=== PATIENT | male | born 1975 | race Caucasian/White ===

== ENCOUNTER 2020-02-25 13:01 | Emergency (ER) | payer MEDICAID, OTHER ==
[2020-02-25] MEDS ORDERED: Acetaminophen/HYDROcodone 325-5 MG Tab PO ONE (13:25)
--- NOTE | 2020-02-25 13:49 | EDM.PDOC ---
ED HPI GENERAL MEDICAL PROBLEM - General Chief Complaint: Lower Extremity Injury/Pain Stated Complaint: RT KNEE INJURY Time Seen by Provider: 02/25/20 13:08 Source of Information: Reports: Patient, RN Notes Reviewed History Limitations: Reports: No Limitations - History of Present Illness INITIAL COMMENTS - FREE TEXT/NARRATIVE: Patient is a 44-year-old male who presents to the ED for a right knee injury. Patient notes he was working on a skid steer on , when he slipped on ice while while he was walking around a skid steer. He notes that he did not hit his right knee, but he has had pain in his knee ever since then. He states about 1 year ago, he broke his right ankle and strained his MCL at that time as well, and everything was getting better, until this current injury. He has been using heat and ice to the area along with a hinged brace he had from his last injury. He has been using Tylenol and ibuprofen with little to no benefit. Patient notes that the pain is on the medial portion of his superior right knee. He notes that walking is very painful. And is appreciating some swelling to the knee. Patient has no regular care provider, but has seen Dr. Kenyon Gill in the past. Patient denies any other sick-like symptoms, fever/chills, cough/shortness of breath, nausea/vomiting/diarrhea. Right Knee Pain Score (Numeric/FACES): 8 - Related Data Allergies Allergy/AdvReac Type Severity Reaction Status Date / Time morphine Allergy Airway Verified 02/25/20 13:12 Tightness Home Meds: Home Meds Acetaminophen/HYDROcodone [[place] 325-5 MG] 1 tab PO Q6H PRN #20 tablet 02/25/20 [Rx] Dulaglutide [Trulicity] 1.5 mg SQ TU 02/25/20 [History] Gabapentin [Neurontin] 800 mg PO QID 02/25/20 [History] Omeprazole 20 mg PO DAILY 02/25/20 [History] clonazePAM [Clonazepam] 1 mg PO DAILY 02/25/20 [History] Past Medical History Gastrointestinal History: Reports: GERD Psychiatric History: Reports: Anxiety Endocrine/Metabolic History: Reports: Diabetes, Type II Social & Family History - Tobacco Use Tobacco Use Status *Q: Current Every Day Tobacco User Years of Tobacco use: 30 Packs/Tins Daily: 1 - Caffeine Use Caffeine Use: Reports: Coffee, Soda - Recreational Drug Use Recreational Drug Use: No Review of Systems - Review of Systems Review Of Systems: Comprehensive ROS is negative, except as noted in HPI. ED EXAM, GENERAL - Physical Exam Exam: See Below Exam Limited By: No Limitations General Appearance: Alert, WD/WN, No Apparent Distress Respiratory/Chest: No Respiratory Distress, Lungs Clear, Normal Breath Sounds, No Accessory Muscle Use, Chest Non-Tender Cardiovascular: Normal Peripheral Pulses, Regular Rate, Rhythm, No Edema Peripheral Pulses: 2+: Dorsalis Pedis (L), Dorsalis Pedis (R) Extremities: Normal Inspection, Joint Swelling (Mild amount of swelling noted to the superiomedial portion of right knee), Limited Range of Motion (of right knee d/t pain and right ankle flexion/extension because of pain in knee.) Neurological: Alert, Oriented, Normal Cognition, No Motor/Sensory Deficits Psychiatric: Normal Affect, Normal Mood Skin Exam: Warm, Dry, Intact, Normal Color, No Rash Course - Vital Signs Last Recorded V/S: Last Vital Signs Temp 96.0 F L 02/25/20 13:19 Pulse 103 H 02/25/20 13:19 Resp 20 02/25/20 13:19 BP 131/97 H 02/25/20 13:19 Pulse Ox 99 02/25/20 13:19 - Orders/Labs/Meds Orders: Active Orders 24 hr Category Date Time Status DME for Discharge [COMM] Routine Oth 02/25/20 14:14 Ordered Meds: Medications Discontinued Medications Generic Name Dose Route Start Last Admin Trade Name Jimi PRN Reason Stop Dose Admin Hydrocodone Bitart/Acetaminophen 2 tab 02/25/20 13:25 02/25/20 13:42 [place] 325-5 Mg PO 02/25/20 13:26 2 tab ONETIME ONE Administration - Re-Assessments/Exams Free Text/Narrative Re-Assessment/Exam: 02/25/20 13:59 Patient presents to the ED for his right knee injury, for today's purposes we will get x-ray to rule out bony injury and we will get an MRI order for outpatient purposes as I highly suspect soft tissue injury. Patient will follow up with Dr. Gill for results. 02/25/20 14:17 Has been taken, demonstrates no bony abnormality or other acute fracture. He will be discharged home with crutches, he already has a knee immobilizing brace, some pain medication and MRI order and follow-up with his regular provider. Departure - Departure Time of Disposition: 14:02 Disposition: Home, Self-Care 01 Condition: Good Clinical Impression: Sprain of unspecified site of right knee, initial encounter - Discharge Information *PRESCRIPTION DRUG MONITORING PROGRAM REVIEWED*: Yes *COPY OF PRESCRIPTION DRUG MONITORING REPORT IN PATIENT MARIA VICTORIA: No Prescriptions: Acetaminophen/HYDROcodone [[place] 325-5 MG] 1 tab PO Q6H PRN #20 tablet PRN Reason: Pain Instructions: Knee Sprain, Adult, [id number] Referrals: PCP,None [Primary Care Provider] - Forms: ED Department Discharge Additional Instructions: You have been evaluated in the ED for your right knee injury. Your x-ray demonstrated no acute bony abnormalities. You have been provided with an outpatient MRI order, you will be contacted by our radiology department to get this scheduled, you will need to follow-up with Dr. Gill for results of this. Please make an appointment after your MRI has been taken, for follow-up for possible PT referral or orthopedics referral if deemed warranted. Dr. Davison is our channel marketing specialist and his office is [phone], if you should feel the need to follow-up with orthopedics directly after imaging is done rather than follow-up with Dr. Gill. Please use ice as tolerated to the affected area. You may elevate the affected area to provide further relief from swelling. You may take Tylenol 500 mg or ibuprofen 600mg q6 hrs for pain relief. Please do so until you have a tolerable level of pain with activity. Do not exceed 4000mg Tylenol, Do not exceed 3200mg ibuprofen in a 24 hour time period. You were given a prescription for a strong pain medication, hydrocodone/acetaminophen 5/325, please take 1 tab every 6 hours as needed for pain not relieved by Tylenol or ibuprofen alone. Please note this does contain Tylenol in it, so do not take more than 4000 mg in a 24-hour time span. These medications can be addictive, so please take as few as possible to achieve adequate pain control. These meds can also be quite constipating, recommend that you increase your oral fluid intake and take a stool softener like MiraLAX while taking these medications. Please return to ED if your symptoms should change or worsen. Sepsis Event Note (ED) - Evaluation Sepsis Screening Result: No Definite Risk - Focused Exam Vital Signs: Vital Signs Temp Pulse Resp BP Pulse Ox 02/25/20 13:19 96.0 F L 103 H 20 131/97 H 99 - My Orders Last 24 Hours: My Active Orders 02/25/20 14:14 DME for Discharge [COMM] Routine - Assessment/Plan Last 24 Hours: My Active Orders 02/25/20 14:14 DME for Discharge [COMM] Routine
--- NOTE | 2020-02-25 14:16 | CR ---
Right knee: 4 views of the right knee were obtained. Comparison: No previous study. Findings: Medial and lateral joint compartments appear to be fairly well maintained. No joint effusion is appreciated. No discrete fracture or other bony abnormality is appreciated. Impression: 1. Nothing acute is appreciated on right knee exam. Diagnostic code #1
== END 2020-02-25 15:21 | disposition home or self-care (01) ==
LOC: JD.ED 13:01
DX: S83.91XA Sprain of unspecified site of right knee, initial encounter (principal); F17.210 Nicotine dependence, cigarettes, uncomplicated; K21.9 Gastro-esophageal reflux disease without esophagitis; F41.9 Anxiety disorder, unspecified; E11.9 Type 2 diabetes mellitus without complications; Z79.84 Long term (current) use of oral hypoglycemic drugs; Z79.899 Other long term (current) drug therapy; Z88.5 Allergy status to narcotic agent; W00.0XXA Fall on same level due to ice and snow, initial encounter
CPT/HCPCS: 73564; 99283; A9270

== ENCOUNTER 2020-05-19 18:56 | Emergency (ER) | payer MEDICAID ==
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
== END 2020-05-19 22:15 ==
LOC: JD.ED 18:56
DX: I33.0 Acute and subacute infective endocarditis (principal); B96.89 Other specified bacterial agents as the cause of diseases classified elsewhere; E11.65 Type 2 diabetes mellitus with hyperglycemia; D72.829 Elevated white blood cell count, unspecified; K21.9 Gastro-esophageal reflux disease without esophagitis; Z72.0 Tobacco use; Z88.5 Allergy status to narcotic agent; Z88.8 Allergy status to other drugs, medicaments and biological substances; Z79.899 Other long term (current) drug therapy; Z79.4 Long term (current) use of insulin; Z20.822 Contact with and (suspected) exposure to COVID-19
CPT/HCPCS: 36415; 80053; 85007; 85027; 99285; U0002

== ENCOUNTER 2020-07-12 10:19 | Emergency (ER) | payer MEDICAID ==
[2020-07-12] MEDS ORDERED: Sodium Chloride 0.9% 10 ML Syringe FLUSH PRN (11:25)
--- NOTE | 2020-07-12 11:49 | EDM.PDOC ---
ED HPI GENERAL MEDICAL PROBLEM - General Chief Complaint: Upper Extremity Injury/Pain Stated Complaint: HAND RED AND SWOLLEN Time Seen by Provider: 07/12/20 11:10 Source of Information: Reports: Patient, RN Notes Reviewed History Limitations: Reports: No Limitations - History of Present Illness INITIAL COMMENTS - FREE TEXT/NARRATIVE: Patient is a 44-year-old male presenting to the emergency department with complaints of pain and swelling to his left hand. He states that 2 weeks ago, he had blood drawn from the area of swelling. Approximately 5 days after this is when the redness and swelling began. He feels there is an abscess in this area. 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 He states 2 weeks ago he finished his last infusion of vancomycin for this. He is type II diabetic and states that he is compliant with his diabetic medications however, he only checks his blood sugars 3-4 times per week. Last time he checked his blood sugars was about 2 days ago and he states they were in the 300s. Denies any fever, chills, nausea, or vomiting. Left Hand Pain Score (Numeric/FACES): 9 - Related Data Allergies Allergy/AdvReac Type Severity Reaction Status Date / Time methadone Allergy Severe Airway Verified 07/12/20 10:33 Tightness Home Meds: Home Meds Dulaglutide [Trulicity] 1.5 mg SQ TU 02/25/20 [History] Gabapentin [Neurontin] 800 mg PO TID 02/25/20 [History] Omeprazole 20 mg PO DAILY 02/25/20 [History] clonazePAM [Clonazepam] 1 mg PO DAILY 02/25/20 [History] Insulin Glargine,Hum.Rec.Anlog [Basaglar Kwikpen U-100] 10 unit SQ BID 05/19/20 [History] Past Medical History Cardiovascular History: Reports: Bacterial Endocarditis Respiratory History: Reports: Asthma Gastrointestinal History: Reports: GERD Psychiatric History: Reports: Addiction, Anxiety, Bipolar Endocrine/Metabolic History: Reports: Diabetes, Type II - Past Surgical History HEENT Surgical History: Reports: Oral Surgery GI Surgical History: Reports: Appendectomy Dermatological Surgical History: Reports: Other (See Below) Social & Family History - Tobacco Use Tobacco Use Status *Q: Current Every Day Tobacco User Years of Tobacco use: 32 Packs/Tins Daily: 1 - Caffeine Use Caffeine Use: Reports: Coffee - Recreational Drug Use Recreational Drug Use: No - Living Situation & Occupation Living situation: Reports: ( lives in [place]), Other (with a roomate) Occupation: Unemployed Review of Systems - Review of Systems Review Of Systems: See Below Constitutional: Reports: No Symptoms. Denies: Chills Eyes: Reports: No Symptoms Ears: Reports: No Symptoms Nose: Reports: No Symptoms Mouth/Throat: Reports: No Symptoms Respiratory: Reports: No Symptoms Cardiovascular: Reports: No Symptoms GI/Abdominal: Reports: No Symptoms Genitourinary: Reports: No Symptoms Musculoskeletal: Reports: Other (pain and swelling to left hand) Skin: Reports: No Symptoms Neurological: Reports: No Symptoms Psychiatric: Reports: No Symptoms ED EXAM, GENERAL - Physical Exam Exam: See Below Exam Limited By: No Limitations General Appearance: Alert, WD/WN, No Apparent Distress Respiratory/Chest: No Respiratory Distress, Lungs Clear, Normal Breath Sounds, No Accessory Muscle Use, Chest Non-Tender Cardiovascular: Normal Peripheral Pulses, Regular Rate, Rhythm, No Gallop, No JVD, No Murmur, No Rub Extremities: Other (redness, warmth, and edema to dorsal aspect of left hand between the 3rd and 4th MCPs.) Course - Vital Signs Last Recorded V/S: Last Vital Signs Temp 97.1 F 07/12/20 14:23 Pulse 104 H 07/12/20 14:23 Resp 13 07/12/20 10:34 BP 128/99 H 07/12/20 14:23 Pulse Ox 100 07/12/20 14:23 - Orders/Labs/Meds Labs: Laboratory Tests 07/12/20 07/12/20 07/12/20 Range/Units 12:09 12:09 12:09 WBC 7.17 (4.23-9.07) K/mm3 RBC 4.55 L (4.63-6.08) M/mm3 Hgb 12.4 L (13.7-17.5) gm/dl Hct 38.2 L (40.1-51.0) % MCV 84.0 (79.0-92.2) fl MCH 27.3 (25.7-32.2) pg MCHC 32.5 (32.2-35.5) g/dl RDW Std Deviation 41.9 (35.1-43.9) fL Plt Count 176 D (163-337) K/mm3 MPV 11.0 (9.4-12.3) fl Neut % (Auto) 62.9 (34.0-67.9) % Lymph % (Auto) 26.5 (21.8-53.1) % [place] % (Auto) 7.8 (5.3-12.2) % Eos % (Auto) 2.2 (0.8-7.0) Baso % (Auto) 0.3 (0.1-1.2) % Neut # (Auto) 4.51 (1.78-5.38) K/mm3 Lymph # (Auto) 1.90 (1.32-3.57) K/mm3 [place] # (Auto) 0.56 (0.30-0.82) K/mm3 Eos # (Auto) 0.16 (0.04-0.54) K/mm3 Baso # (Auto) 0.02 (0.01-0.08) K/mm3 Sodium 139 D (136-145) mEq/L Potassium 3.7 (3.5-5.1) mEq/L Chloride 99 (98-107) mEq/L Carbon Dioxide 31 (21-32) mEq/L Anion Gap 12.7 (5-15) BUN 14 (7-18) mg/dL Creatinine 0.9 (0.7-1.3) mg/dL Est Cr Clr Drug Dosing 110.40 mL/min Estimated GFR (MDRD) > 60 (>60) mL/min BUN/Creatinine Ratio 15.6 (14-18) Glucose 284 H (70-99) mg/dL Lactic Acid 0.8 (0.4-2.0) mmol/L Calcium 8.9 (8.5-10.1) mg/dL Total Bilirubin 0.3 (0.2-1.0) mg/dL AST 13 L (15-37) U/L ALT 49 (16-63) U/L Alkaline Phosphatase 141 H (46-116) U/L C-Reactive Protein 6.6 H* (<1.0) mg/dL Total Protein 7.4 (6.4-8.2) g/dl Albumin 3.2 L (3.4-5.0) g/dl Globulin 4.2 gm/dL Albumin/Globulin Ratio 0.8 L (1-2) Ketones (0.0-0.3) mM 07/12/20 Range/Units 12:09 WBC (4.23-9.07) K/mm3 RBC (4.63-6.08) M/mm3 Hgb (13.7-17.5) gm/dl Hct (40.1-51.0) % MCV (79.0-92.2) fl MCH (25.7-32.2) pg MCHC (32.2-35.5) g/dl RDW Std Deviation (35.1-43.9) fL Plt Count (163-337) K/mm3 MPV (9.4-12.3) fl Neut % (Auto) (34.0-67.9) % Lymph % (Auto) (21.8-53.1) % [place] % (Auto) (5.3-12.2) % Eos % (Auto) (0.8-7.0) Baso % (Auto) (0.1-1.2) % Neut # (Auto) (1.78-5.38) K/mm3 Lymph # (Auto) (1.32-3.57) K/mm3 [place] # (Auto) (0.30-0.82) K/mm3 Eos # (Auto) (0.04-0.54) K/mm3 Baso # (Auto) (0.01-0.08) K/mm3 Sodium (136-145) mEq/L Potassium (3.5-5.1) mEq/L Chloride (98-107) mEq/L Carbon Dioxide (21-32) mEq/L Anion Gap (5-15) BUN (7-18) mg/dL Creatinine (0.7-1.3) mg/dL Est Cr Clr Drug Dosing mL/min Estimated GFR (MDRD) (>60) mL/min BUN/Creatinine Ratio (14-18) Glucose (70-99) mg/dL Lactic Acid (0.4-2.0) mmol/L Calcium (8.5-10.1) mg/dL Total Bilirubin (0.2-1.0) mg/dL AST (15-37) U/L ALT (16-63) U/L Alkaline Phosphatase (46-116) U/L C-Reactive Protein (<1.0) mg/dL Total Protein (6.4-8.2) g/dl Albumin (3.4-5.0) g/dl Globulin gm/dL Albumin/Globulin Ratio (1-2) Ketones 0.08 (0.0-0.3) mM Meds: Medications Discontinued Medications Generic Name Dose Route Start Last Admin Trade Name Freq PRN Reason Stop Dose Admin Sodium Chloride 10 ml 07/12/20 11:25 07/12/20 13:35 Sodium Chloride 0.9% 10 Ml Syringe FLUSH 10 ml ASDIRECTED PRN Administration Keep Vein Open - Re-Assessments/Exams Free Text/Narrative Re-Assessment/Exam: Patient is a 44-year-old male presenting to the emergency department with complaints of redness, warmth, and swelling to his left hand between the third and fourth MCP joints. I did do a bedside ultrasound and there is fluid noted in this area. I have ordered blood work, urinalysis, as well as a formal ultrasound to get measurements on area of likely abscess. Patient reports that he is a very difficult IV start, therefore anesthesia has been called to start IV access as well as draw blood. 07/12/20 13:48 Hematology was significant for hemoglobin of 12.4, glucose 284, CRP 6.6. WBCs and ketones are normal. Patient has not produced a urine thus far. Ultrasound of the area of redness and warmth shows a 2.4 cm x 0.8 cm x 1.6 cm area of complicated fluid likely abscess. Case was discussed with the general surgeon on-call, Dr. Byrd. Given the abscesses location, she recommends a hand specialist. Spoke with [facility] Dee [facility] [place]. He recommends patient be transferred for admission to the hospital with plans to washout the area tomorrow. He does not want antibiotics given as he would like to get a clean culture. Case discussed with hospitalist, Dr. Reddy, at [facility] in [place]. He has accepted the patient for direct admission. Patient will transport by private vehicle. His IV will be wrapped and will go with him for transport. Patient is in agreement with this plan. Departure - Departure Time of Disposition: 13:48 Disposition: DC/Tfer to Acute Hospital 02 Condition: Good Clinical Impression: Abscess of hand, left - Discharge Information *PRESCRIPTION DRUG MONITORING PROGRAM REVIEWED*: No *COPY OF PRESCRIPTION DRUG MONITORING REPORT IN PATIENT MARIA VICTORIA: No Instructions: Skin Abscess Referrals: PCP,None [Primary Care Provider] - Forms: ED Department Discharge Additional Instructions: You were seen in the emergency department today for evaluation of redness, warmth, and swelling to your left hand. Results of work-up indicate that you have an abscess within the hand that requires surgical drainage. Arrangements have been made for you to be admitted to [facility] in [place] under the care of hospitalist Dr. Reddy as well as consult with hand specialist, Dr. Dee. Recommend that you travel to this facility and check in at the admitting desk for direct admission. Sepsis Event Note (ED) - Evaluation Sepsis Screening Result: No Definite Risk
--- NOTE | 2020-07-12 12:25 | US ---
Left hand ultrasound: Multiple real-time images were obtained of the left hand. Comparison: No prior left hand imaging is available. Complicated fluid collection is seen correlating to the third and fourth MCP joint area. This measures 2.4 x 0.8 x 1.6 cm. If patient has infection this would most likely be due to an abscess. Impression: 1. Abnormality as noted above. Diagnostic code #3
--- NOTE | 2020-07-12 12:29 | PCM.SN.2 ---
- Free Text/Narrative Note: Procedure: IV start Time: 7642-2921 Called to ER for difficult IV start. IV start kit utilized, site cleansed with c hlorhexidine x 2, 20 gauge IV 1.88 inch inserted in the left basilic vein with a single attempt, good blood return, flushes well with 20 ml of normal saline. Secured with skin prep, transparent dressing and tape in start kit. Kenyon tolerated the procedure well.
== END 2020-07-12 13:50 ==
LOC: JD.ED 10:19
DX: L02.512 Cutaneous abscess of left hand (principal); E11.9 Type 2 diabetes mellitus without complications; K21.9 Gastro-esophageal reflux disease without esophagitis; Z88.5 Allergy status to narcotic agent; Z79.4 Long term (current) use of insulin; Z72.0 Tobacco use
CPT/HCPCS: 36410; 36415; 76881-26-LT; 76881-LT; 80053; 82009; 83605; 85025; 86140; 99284; 99284-25